=== PATIENT | male | born 1995 | race Hispanic/Latino ===

== ENCOUNTER 2018-03-28 10:27 | Emergency (ER) | payer OTHER ==
[2018-03-28 10:43] VITALS: BMI 25.0
[2018-03-28 10:45] VITALS: TEMP 98.2; O2SAT 100
[2018-03-28] MEDS ORDERED: Sucralfate 1 gm/10 ml Oral Susp UD PO STA (11:03)
--- NOTE | 2018-03-28 11:04 | ED PDOC ---
HPI: Abdomen Time Seen by Provider: 03/28/18 10:48 Chief Complaint (Provider): Abdominal Pain History Per: Patient History/Exam Limitations: no limitations Onset/Duration Of Symptoms: Days (x2) Current Symptoms Are (Timing): Still Present Additional Complaint(s): 22 y/o male with a PMHx of anxiety, depression, bipolar disorder, and asthma presenting for evaluation of abdominal pain x2 days. Patient states he began to have abdominal pain yesterday night which came acutely worse and associated with a burning sensation this morning, prompting him to present to ED. Patient reports he was seen and evaluated last year at [facility] where he was diagnosed to dyspepsia. He states he was discharged and given Pepcid which did not provide relief of his symptoms, but he began to take Nexium for a "few months" which provided him relief. He reports going to the [facility] for follow up after his [facility] visit, but has not seen a PCP since. He reports some nausea, but denies any fever, chills, vomiting, back pain, bladder or bowel dysfunction, or diarrhea. Patient also reports going on vacation 1 week ago where he drank 5+ drinks per day every day. He reports otherwise sparse alcohol consumption on a weekly basis. PMD: None Past Medical History Reviewed: Historical Data, Nursing Documentation, Vital Signs Vital Signs: Last Vital Signs Temp 98.2 F 03/28/18 10:44 Pulse 62 03/28/18 10:44 Resp 20 03/28/18 10:44 BP 126/70 03/28/18 10:44 Pulse Ox 100 03/28/18 12:12 - Medical History PMH: Anxiety, Asthma, Bipolar Disorder, Depression Other PMH: Dyspepsia - Surgical History Surgical History: No Surg Hx - Family History Family History: States: Unknown Family Hx - Social History Current smoker - smoking cessation education provided: No Alcohol: Occasional Drugs: Cannabis, Cocaine (over 1 year ago), Prescription medications (over 1 year ago) - Home Medications Home Medications: Ambulatory Orders Medication Instructions Recorded Famotidine [Pepcid] 20 mg PO BID #28 tab 03/28/18 - Allergies Allergies/Adverse Reactions: Allergies Allergy/AdvReac Type Severity Reaction Status Date / Time No Known Allergies Allergy Verified 03/28/18 11:02 Review of Systems ROS Statement: Except As Marked, All Systems Reviewed And Found Negative Constitutional: Negative for: Fever, Chills Cardiovascular: Negative for: Chest Pain Respiratory: Negative for: Cough, Shortness of Breath Gastrointestinal: Positive for: Nausea, Abdominal Pain. Negative for: Vomiting , Diarrhea, Constipation Genitourinary Male: Negative for: Dysuria, Frequency, Incontinence Musculoskeletal: Negative for: Back Pain Physical Exam - Reviewed Nursing Documentation Reviewed: Yes Vital Signs Reviewed: Yes - Physical Exam Appears: Positive for: Non-toxic, No Acute Distress Head Exam: Positive for: ATRAUMATIC, NORMAL INSPECTION, NORMOCEPHALIC Skin: Positive for: Normal Color, Warm, Dry. Negative for: Rash Eye Exam: Positive for: EOMI, Normal appearance, PERRL Neck: Positive for: Normal, Painless ROM, Supple Cardiovascular/Chest: Positive for: Regular Rate, Rhythm. Negative for: Murmur Respiratory: Positive for: Normal Breath Sounds. Negative for: Respiratory Distress Gastrointestinal/Abdominal: Positive for: Guarding (voluntary guarding of lower bilateral abdomen) Back: Positive for: Normal Inspection. Negative for: L CVA Tenderness, R CVA Tenderness, Vertebral Tenderness Extremity: Positive for: Normal ROM. Negative for: Pedal Edema, Deformity Neurologic/Psych: Positive for: Alert, Oriented (x3). Negative for: Motor/ Sensory Deficits - Laboratory Results Result Diagrams: 03/28/18 11:20 03/28/18 11:20 - ECG O2 Sat by Pulse Oximetry: 100 (RA) Pulse Ox Interpretation: Normal Medical Decision Making Medical Decision Makin:02 Impression: Abdominal pain Plan: -CMP -Lipase -Urine dipstick -CBC w/ differential -Carafate 1gm PO -Pepcid 20mg IVP -IV Insertion -Reevaluation Scribe Attestation: Documented by Tigre Mcnair, acting as a scribe for Yue Chavez MD. Provider Scribe Attestation: All medical record entries made by the Scribe were at my direction and personally dictated by me. I have reviewed the chart and agree that the record accurately reflects my personal performance of the history, physical exam, medical decision making, and the department course for this patient. I have also personally directed, reviewed, and agree with the discharge instructions and disposition. 1.30p - feeling better. Okay for discharge. Disposition - Clinical Impression Clinical Impression: Dyspepsia - Patient ED Disposition Is Patient to be Admitted: No Doctor Will See Patient In The: Office Counseled Patient/Family Regarding: Diagnosis, Need For Followup, Rx Given - Disposition Referrals: Code[facility] Ratliff [facility] [Outside] Disposition: Routine/Home Disposition Time: 13:15 Condition: IMPROVED Prescriptions: Famotidine [Pepcid] 20 mg PO BID #28 tab Instructions: Dyspepsia Forms: [facility] (German) - POA Present On Arrival: None
[2018-03-28] MEDS ORDERED: Sucralfate 1 gm/10 ml Oral Susp UD ONE (11:17)
[2018-03-28 11:45] LABS: ALB/GLOB RATIO 1.4 (1.0-2.1); ALBUMIN 4.2 g/dL (3.5-5.0); ALT/SGPT 50 U/L (21-72); AST/SGOT 29 U/L (17-59); BLOOD UREA NITROGEN 15 mg/dl (9-20); CALCIUM 9.1 mg/dL (8.4-10.2); GFR AFRICAN-AMERICAN > 60; GFR NON-AFRICAN AMERICAN > 60; LIPASE 42 U/L (23-300)
[2018-03-28 11:48] LABS: BASO % 0.6 % (0.0-2.0); EOS % 0.7 % (0.0-4.0); MEAN CELL VOLUME 92.8 fl (80.0-94.0); MEAN CORPUSCULAR HEMOGLOBIN 31.8 pg (27.0-31.0); MEAN CORPUSCULAR HGB CONC 34.3 g/dL (33.0-37.0); MEAN PLATELET VOLUME 7.8 fl (7.2-11.7); MONO # 0.5 K/uL (0.0-0.8); NEUT # 4.7 K/uL (1.8-7.0); NEUT % 74.7 % (50.0-75.0); NRBC % 0.1 % (0.0-0.0); RBC 4.7 Mil/uL (4.40-5.90); RED CELL DISTRIBUTION WIDTH 13.5 % (11.5-14.5); WHITE BLOOD COUNT 6.3 K/uL (4.8-10.8)
[2018-03-28 14:43] VITALS: BP 112/58; PULSE 70; RESP 16
== END 2018-03-28 14:32 | disposition home or self-care (01) ==
LOC: H.ER 10:27
DX: R13.10 Dysphagia, unspecified (principal); F31.9 Bipolar disorder, unspecified